=== PATIENT | male | born 1985 | race Two or more races ===

== ENCOUNTER 2017-04-19 17:06 | Emergency (ER) | payer SELFPAY ==
[~2017-04-19] VITALS: Ht 165.1 cm; Wt 72.6 kg
[2017-04-19 17:06] VITALS: BP 135/90
[2017-04-19] MEDS ORDERED: diphenhydrAMINE HCL 50 MG CAPSULE ONE (17:47)
[2017-04-19] MEDS ORDERED: DIAZEPAM 5 MG TABLET ONE (17:47)
[2017-04-19] MEDS ORDERED: KETOROLAC TROMETHAMINE INJ 30 MG/ML VIAL ONE (17:47)
[2017-04-19] MEDS ORDERED: DIAZEPAM 10 MG TABLET PO ONE (18:00)
[2017-04-19] MEDS ORDERED: KETOROLAC TROMETHAMINE INJ 60 MG/2 ML VIAL IM ONE (18:00)
[2017-04-19] MEDS ORDERED: diphenhydrAMINE HCL 25 MG CAPSULE PO ONE (18:00)
--- NOTE | 2017-04-19 18:07 | NUR ---
SANDWICH PROVIDED FOR PATIENT
--- NOTE | 2017-04-19 18:42 | NUR ---
PAIN IS BETTER PER PT, NOW 04/02
[2017-04-19 19:06] LABS: BILIRUBIN,URINE SMALL (NEGATIVE); BLOOD, URINE Large Ery/uL (NEGATIVE); COLOR,URINE Yellow (YELLOW); KETONES,URINE Negative (NEGATIVE); LEUKOCYTE ESTERASE ,URINE Negative (NEGATIVE); NITRITE, URINE Negative (NEGATIVE); PROTEIN,URINE >=300 mg/dl (NEGATIVE); UGLUCOSE 500 MG/DL mg/dL (NEGATIVE); UROBILINOGEN,URINE 0.2 EU/dL (0.2)
[2017-04-19 19:10] LABS: APPEARANCE,URINE CLOUDY (CLEAR)
[2017-04-19 19:24] LABS: BACTERIA,URINE Few /HPF (None Seen); SQUAMOUS EPITHELIAL CELL,UR Rare /HPF (None Seen); URINE AMORPHOUS URATE Few /HPF (None Seen); WBC,URINE 0-2 /HPF (0-3); YEAST,URINE Few /HPF (None Seen)
[2017-04-19 19:25] LABS: HYALINE CASTS, URINE Few /LPF (None Seen)
--- NOTE | 2017-04-19 19:30 | NUR ---
ATTEMPTED TO SEND PT FOR CT. PT NOT AT CHAIR.
--- NOTE | 2017-04-19 19:31 | NUR ---
PT LEFT WITHOUT D/C PAPERWORK. Andrew STANLEY, [facility]- NOTIFIED.
== END 2017-04-19 19:35 | disposition left against medical advice (07) ==
LOC: ER 17:08
DX: M54.9 Dorsalgia, unspecified (principal); R10.9 Unspecified abdominal pain; T50.995A Adverse effect of other drugs, medicaments and biological substances, initial encounter; E11.9 Type 2 diabetes mellitus without complications; F20.9 Schizophrenia, unspecified; Y92.89 Other specified places as the place of occurrence of the external cause
CPT/HCPCS: 81000-TC; A4606; J1885; Q0163; Z7610